=== PATIENT | female | born 1990 | race Caucasian/White ===

== ENCOUNTER 2018-07-23 11:44 | Emergency (ER) | payer BC ==
[2018-07-23 11:48] VITALS: BP 142/98
--- NOTE | 2018-07-23 11:52 | ER Report ---
History and Physical Time Seen By MD: 11:51 Hx. of Stated Complaint: PATIENT REPORTS BEING BIT BY DOG AT WORK 10 MINS AGO. HPI/ROS CHIEF COMPLAINT: Dog bite HISTORY OF PRESENT ILLNESS: This is a 28-year-old female presents to the emergency department for a dog bite. 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 2 small puncture wounds with some abrasions. They are about 50% sure that that dog's vaccinations are up-to-date, she's currently in contact with her boss and the state appellate clerk of the dog to try to figure out if the dog's vaccinations are current, the patient states that the state appellate clerk of the dog just adopted dog from the [employer] and was told that the vaccines were up-to-date. She denies numbness or tingling distal to the injury. CMS intact. No chest pain or shortness breath. No other compl aints. REVIEW OF SYSTEMS: Respiratory: No cough, no dyspnea. Cardiovascular: No chest pain, no palpitations. Gastrointestinal: No vomiting, no abdominal pain. Musculoskeletal: As above. Integumentary: As above. Allergies: Coded Allergies: No Known Drug Allergies (Unverified , 07/23/18) Home Meds Active Scripts Amoxicillin/Pot Clav 875-125 Mg Tab (AUGMENTIN 875-125 TABLET) 1 Each Tablet, 1 TAB PO Q12H for 10 Days, #20 TAB 0 Refills Prov:BLAIR BALLARD CHIEF RELAY TESTER-BC 07/23/18 Reported Medications Norgestimate-Ethinyl Estradiol (MONO-LINYAH) 1 Each Tablet, 1 EACH PO 07/23/18 Past Medical/Surgical History The patient has a past medical and surgical history of finger amputation, uses marijuana. Reviewed Nurses Notes: Yes Constitutional Vital Sign - Last 24 Hours 07/23/18 11:48 Temp 98.0 Pulse 97 Resp 16 B/P (MAP) 142/98 Pulse Ox 96 O2 Delivery Room Air Physical Exam General Appearance: The patient is alert, has no immediate need for airway protection and no current signs of toxicity. Eyes: Pupils equal and round no injection. Respiratory: Chest is non tender, lungs are clear to auscultation. Cardiac: regular rate and rhythm Gastrointestinal: Abdomen is soft and non tender, no masses, bowel sounds normal. Musculoskeletal: Neck: Neck is supple and non tender. Extremities have full range of motion and are non tender. Skin: Abrasions, puncture wounds and redness to the palmar side of the right wrist. CMS intact distal to the injury. DIFFERENTIAL DIAGNOSIS: After history and physical exam differential diagnosis was considered for dog bite. Medical Decision Making ED Course/Re-evaluation ED Course The patient was admitted to room. A history and physical obtained. Differential diagnoses were considered. The patient was able to contact the [facility] and they did verify that the dog that bit the patient just received all other vaccinations including rabies. The patient's tetanus was updated. The wound was cleansed and bacitracin was applied to the wound, there were no suturable wounds. I discussed this with the patient, she will continue to monitor the wound, she was started on Augmentin. She declined pain medication at this time. Although she is going to be on antibiotics I did instruct her to monitor closely for signs of infection, the patient was agreeable with this plan care and discharged home. [facility] [employer] was contacted, they were able to take the patient's report while she was in the emergency department. Decision to Disposition Date: Jul 23, 2018 Decision to Disposition Time: 12:41 Depart Departure Latest Vital Signs Vital Signs Date Time Temp Pulse Resp B/P (MAP) Pulse Ox O2 Delivery O2 Flow Rate FiO2 07/23/18 11:48 98.0 97 16 142/98 96 Room Air Impression: Primary Impression: Dog bite of right wrist Condition: Improved Disposition: HOME OR SELF-CARE New Scripts Amoxicillin/Pot Clav 875-125 Mg Tab (AUGMENTIN 875-125 TABLET) 1 Each Tablet 1 TAB PO Q12H for 10 Days, #20 TAB 0 Refills Prov: BLAIR BALLARD Eliz CHIEF RELAY TESTER-BC 07/23/18 Patient Instructions: Animal Bite (ED), Rabies Vaccine (ED) Additional Instructions: As the dog has it's vaccines then there is no indication for rabies prophylaxis. May sure to keep the wound clean and dry. You will be on Augmentin for the next 10 days. Although you will be on antibiotics please monitor closely for infection such as increased swelling, pus and red streaks moving up her arm. Take ibuprofen or Tylenol as needed for pain. Drink plenty of water. Get plenty of rest. Return to the emergency department for any other concerns or worsening symptoms. Problem Qualifiers Primary Impression: Dog bite of right wrist Encounter type: initial encounter Qualified Codes: S61.551A - Open bite of right wrist, initial encounter; W54.0XXA - Bitten by dog, initial encounter BLAIR BALLARDP-SHAYLA Jul 23, 2018 11:52
[2018-07-23] MEDS ORDERED: NORG1TAB16 PO (11:59)
[2018-07-23] MEDS ORDERED: DIPHTH/TETANUS/ACEL. PERTUSSIS IM ONLY ONE (12:00)
[2018-07-23] MEDS ORDERED: AMOX-559 PO (12:05)
== END 2018-07-23 12:49 | disposition home or self-care (01) ==
LOC: ER 12:08
DX: S61.551A Open bite of right wrist, initial encounter (principal); S60.811A Abrasion of right wrist, initial encounter; W54.0XXA Bitten by dog, initial encounter
CPT/HCPCS: 90471; 90715; 99283